=== PATIENT | male | born 1950 | race Hispanic/Latino ===

== ENCOUNTER 2017-08-26 08:49 | Emergency (ER) | payer MEDICARE, OTHER ==
[2017-08-26] MEDS ORDERED: Furosemide 40 MG/4 ML VIAL ONE (10:30)
[2017-08-26 14:16] LABS: ALT (SGPT) 10 U/L (8-55); AST (SGOT) 10 U/L (5-34); Albumin 3.1 g/dL (3.4-4.8); Alkaline Phosphatase 177 U/L (40-150); Anion Gap 11 mmol/L (10-20); BUN (Urea Nitrogen) 20 mg/dL (8.4-25.7); Bilirubin, Total 0.5 mg/dL (0.2-1.2); CK (CPK) 59 U/L (30-200); Calc. Creatinine Clearance 0 mL/min (70-130); Calcium 9.3 mg/dL (7.8-10.44); Carbon Dioxide 28 mmol/L (23-31); Chloride 98 mmol/L (98-107); Estimated GFR-MDRD 48; Globulin 4.6 g/dL (2.4-3.5); Lipase 14 U/L (8-78); Potassium 4.8 mmol/L (3.5-5.1); Protein, Total 7.7 g/dL (5.8-8.1); Sodium 132 mmol/L (136-145)
[2017-08-26 14:17] LABS: CKMB 2.6 ng/mL (0-6.6); Troponin I Less than 0.010 ng/mL (< 0.028)
[2017-08-26 14:18] LABS: Glucose 460 mg/dL (80-115)
--- NOTE | 2017-08-26 14:39 | RAD ---
PORTABLE CHEST: History: Headache and hypertension. FINDINGS: Heart size is within normal limits. Aorta is mildly tortuous. The lungs are clear of infiltrates. IMPRESSION: No active intrathoracic disease. POS: [facility]
[2017-08-26 15:11] LABS: %Neutrophils 79.8 % (42.0-75.0); Hemoglobin 13.9 g/dL (14.0-18.0); Mean Corpuscular HGB CONC 32.2 g/dL (32.0-36.0); Mean Corpuscular Hemoglobin 30.1 pg (27.0-31.0); Mean Corpuscular Volume 93.6 fL (80.0-94.0); Mean Platelet Volume 7.8 fL (7.4-10.4); Platelet Count 183 thou/uL (130-400); RBC Distribution Width 11.8 % (11.5-14.5); Red Blood Cell (RBC) Count 4.61 mill/uL (4.70-6.10); White Blood Cell (WBC) Count 11.4 thou/uL (4.8-10.8)
[2017-08-26 15:12] LABS: %Lymphocytes 13.7 % (21.0-51.0)
[2017-08-26 16:19] LABS: #Basophils 0.1 thou/uL (0.0-0.2); #Eosinphils 0.2 thou/uL (0.0-0.7); #Lymphocytes 1.6 thou/uL (1.20-3.40); #Monocytes 0.5 thou/uL (0.11-0.59); #Neutrophils 9.1 thou/uL (1.40-6.50); %Basophils 0.5 % (0.0-1.0); %Eosinophils 1.8 % (0.0-10.0); %Monocytes 4.2 % (0.0-10.0)
== END 2017-08-26 11:03 | disposition home or self-care (01) ==
LOC: NAV ERS 08:49
DX: E11.65 Type 2 diabetes mellitus with hyperglycemia (principal); I10 Essential (primary) hypertension; I25.2 Old myocardial infarction; J45.909 Unspecified asthma, uncomplicated; Z86.73 Personal history of transient ischemic attack (TIA), and cerebral infarction without residual deficits
CPT/HCPCS: 36415; 36416; 71010; 80053; 82550; 82553; 83690; 83880; 84484; 85025; 96374; 96375; J1940